=== PATIENT | female | born 1970 ===

== ENCOUNTER 2022-08-19 06:10 | Day surgery (SDC) | payer OTHER ==
[~2022-08-19 06:10] MED LIST: CLONAZEPAM0.5 MG PO; CRESTOR20 MG PO; FLEXERIL PO; GABAP PO; SIMVAST PO; TOPROL XL50 M1 PO
[2022-08-19] MEDS ORDERED: MACROBID 100 M100 MG PO (09:31)
[2022-08-19] MEDS ORDERED: TRAM1TAB98 PO (09:32)
== END 2022-08-19 10:40 | disposition home or self-care (01) ==
LOC: CIR.AMB 06:10
PROVIDERS: ATTEND Obstetrics & Gynecology Gynecology
DX: N39.3 Stress incontinence (female) (male) (principal); Z20.822 Contact with and (suspected) exposure to COVID-19; N36.41 Hypermobility of urethra; N39.8 Other specified disorders of urinary system; I10 Essential (primary) hypertension; G62.9 Polyneuropathy, unspecified
CPT/HCPCS: 57288; C1771